=== PATIENT | male | born 1965 | race Caucasian/White ===

== ENCOUNTER → 2023-06-12 09:47 | Outpatient (REF) | payer OTHER, SELFPAY | LOC: SDSPAT 09:47 | PROVIDERS: ATTENDING PHYSICIAN Orthopaedic Surgery; FAMILY PHYSICIAN Family Medicine | DX: M71.161 Other infective bursitis, right knee (principal) | CPT/HCPCS: 36415; 93005 ==

== ENCOUNTER → 2024-11-18 07:59 | Outpatient (REF) | payer OTHER, SELFPAY | LOC: RCS 07:59 | DX: R00.2 Palpitations (principal) | CPT/HCPCS: 93225; 93226 ==